=== PATIENT | male | born 1955 | race Hispanic/Latino ===

== ENCOUNTER 2022-05-16 22:03 | Emergency (ER) | payer MEDICAID, OTHER ==
[~2022-05-16] VITALS: Ht 167.6 cm; Wt 90.7 kg
[2022-05-16] MEDS ORDERED: KETOROLAC 15MG/ML VIAL (15MG/ML) IV ONE (23:00)
[2022-05-16] MEDS ORDERED: 0.9%NACL 1000ML 1,000 ML IV ONE (23:00)
[2022-05-16 23:46] LABS: EOSINOPHILS % (AUTO) 8.5 % (0.0-8.0); HEMATOCRIT 41.6 % (42-54); LYMPHOCYTES % (AUTO) 21.3 % (21.0-51.0); MEAN CORPUSCULAR HEMOGLOBIN 29.8 pg (27.0-33.0); MEAN CORPUSCULAR HGB CONC 37.5 g/dL (32.0-36.0); MEAN CORPUSCULAR VOLUME 79.4 fL (79-99); MONOCYTES % (AUTO) 10.7 % (3.0-13.0); NEUTROPHILS % (AUTO) 58.1 % (40.0-77.0); PLATELET COUNT (AUTO) 186 K/uL (130-400); RED BLOOD CELL COUNT(AUTO) 5.24 MIL/uL (4.50-6.20); RED CELL DISTRIBUTION WIDTH 13.6 % (11.0-15.5); WHITE BLOOD COUNT (AUTO) 10.5 K/uL (4.8-10.8)
[2022-05-16 23:54] LABS: CREATININE 0.9 mg/dL (0.5-1.5)
[2022-05-17] LABS: ALBUMIN 3.2 g/dL (3.5-5.0); TOTAL PROTEIN, SERUM 8.3 g/dL (6.0-8.3)
[2022-05-17] MEDS ORDERED: ACET-2079 PO (01:04)
[2022-05-17 01:07] VITALS: BP 146/86
== END 2022-05-17 01:23 | disposition home or self-care (01) ==
LOC: EDH 22:03
DX: S22.41XA Multiple fractures of ribs, right side, initial encounter for closed fracture (principal); S00.83XA Contusion of other part of head, initial encounter; M25.521 Pain in right elbow; E87.1 Hypo-osmolality and hyponatremia; Z79.1 Long term (current) use of non-steroidal anti-inflammatories (NSAID); W01.0XXA Fall on same level from slipping, tripping and stumbling without subsequent striking against object, initial encounter; Y93.89 Activity, other specified; Y92.89 Other specified places as the place of occurrence of the external cause; Y99.8 Other external cause status
CPT/HCPCS: 99285; 70450; 96374; 96361; 82550; 84484; 80053; 85025; 36415; 73080; 71101; 72125; 93005; 70486; J1885